=== PATIENT | female | born 1955 | race African-American/Black ===

== ENCOUNTER 2019-01-28 12:15 | Emergency (ER) | payer OTHER, MEDICAID ==
[~2019-01-28] VITALS: Ht 152.4 cm; Wt 91.0 kg
[2019-01-28 18:02] LABS: BASOPHILS % 0.3 % (0.0-2.0); EOSINOPHILS % 0.1 % (0.0-5.0); HEMATOCRIT. 35.5 % (36.0-48.0); HEMOGLOBIN. 11.4 g/dL (12.0-16.0); LYMPHOCYTES % 36.1 % (20.0-50.0); MEAN CORPUSCULAR HEMOGLOBIN 26.3 pg (28.0-32.0); MEAN CORPUSCULAR VOLUME 81.7 fL (81.0-99.0); MEAN PLATELET VOLUME 7.5 fl (7.4-10.4); MONOCYTES % 14.2 % (2.0-8.0); NEUTROPHILS % 49.3 % (40.0-76.0); PLATELET 213 x1000/uL (130-400); RED BLOOD CELL COUNT 4.34 mill/uL (4.2-5.4); RED CELL DISTRIBUTION WIDTH 14.1 % (11.6-14.6)
[2019-01-28 18:09] LABS: CHLORIDE 94 mEq/L (98-107)
[2019-01-28 18:17] LABS: CREATINE KINASE 930 IU/L (26-192)
[2019-01-28 19:03] VITALS: BP 134/68
== END 2019-01-28 19:03 | disposition home or self-care (01) ==
LOC: ER 12:44
DX: M79.605 Pain in left leg (principal); M79.604 Pain in right leg; M79.89 Other specified soft tissue disorders; J43.9 Emphysema, unspecified; I10 Essential (primary) hypertension
CPT/HCPCS: 36415; 82550; 83880; 93970; 99284